=== PATIENT | male | born 1955 | race Caucasian/White ===

== ENCOUNTER 2016-08-29 16:14 | Emergency (ER) | payer OTHER, MEDICARE ==
[~2016-08-29] VITALS: Ht 180.3 cm; Wt 95.3 kg
--- NOTE | 2016-08-29 18:53 | ED SKIN/ALLERGY COMPLAINT ---
History of Present Illness General Chief Complaint: Lower Extremity Problems Stated Complaint: RIGHT UPPER THIGH PAIN, WARMNESS Source: patient Exam Limitations: no limitations Vital Signs & Intake/Output Vital Signs & Intake/Output Vital Signs Date Time Temp Pulse Resp B/P Pulse O2 O2 Flow FiO2 Ox Delivery Rate 08/29 2200 98.2 70 17 106/70 98 Room Air Room Air 08/29 2030 97.3 60 18 100/55 92 Room Air 08/29 1631 96.9 85 20 102/71 98 Room Air ED Intake and Output 08/30 0000 08/29 1200 Intake Total 240 Output Total Balance 240 Intake, Oral 240 Patient 210 lb Weight Allergies Coded Allergies: No Known Allergies (08/29/16) Reconcile Medications Ammonium Lactate 12 % CREAM..G. 1 JULIA TOP BID AFFECTED AREA(S) (Reported) Aripiprazole (Abilify) 15 MG TABLET 1 TAB PO AD MENTAL HEALTH (Reported) Aspirin (Ecotrin*) 81 MG TABLET.DR 1 TAB PO DAILY HEART/BLOOD (Reported) Atorvastatin Calcium (Unknown Strength) TABLET (Unknown Dose) PO AD CHOLESTEROL (Reported) Bupropion HCl (Wellbutrin XL) 150 MG TAB.ER.24H 1 TAB PO QAM MENTAL HEALTH ( Reported) Clonazepam (Klonopin) 0.5 MG TABLET 1 TAB PO Q12H PRN MENTAL HEALTH (Reported ) Clopidogrel Bisulfate (Plavix) 75 MG TABLET 1 TAB PO AD BLOOD THINNER ( Reported) Cyclobenzaprine HCl 10 MG TABLET 1 TAB PO TID PRN LOW BACK PAIN (Reported) Docusate Sodium (Doc-Q-Lace) 100 MG CAPSULE 1 CAP PO BID STOOL SOFTENER ( Reported) Ergocalciferol (Vitamin D2) (Vitamin D2) 50,000 UNIT CAPSULE 1 CAP PO QW SUPPLEMENT (Reported) Fluticasone/Salmeterol (Advair 500-50 Diskus) 500 MCG-50 MCG/DOSE BLST.W.DEV 1 PUF INH BID COPD (Reported) Furosemide 20 MG TABLET 1 TAB PO AD DIURETIC (Reported) Ipratropium/Albuterol Sulfate (Combivent Respimat Inhal [place]) 20 MCG-100 MCG/ ACTUATION MIST.INHAL 1 PUFF INH 4 TIMES/DAY COPD (Reported) Levothyroxine Sodium (Levoxyl) 75 MCG TABLET 1 TAB PO DAILY THYROID (Reported ) Metformin HCl (Glucophage) 1,000 MG TABLET 1 TAB PO QAM DM (Reported) Metoprolol Tartrate 25 MG TABLET 0.5 TAB PO BID HTN (Reported) Mirtazapine 30 MG TABLET 0.5 TAB PO QHS MENTAL HEALTH (Reported) Montelukast Sodium 10 MG TABLET 1 TAB PO QPM COPD (Reported) Oxycodone HCl/Acetaminophen (Percocet 5-325 MG Tablet) 5 MG-325 MG TABLET 1 TAB PO AD PAIN (Reported) Pantoprazole Sodium 40 MG TABLET.DR 1 TAB PO DAILY GERD (Reported) Quetiapine Fumarate 100 MG TABLET 1 TAB PO AD MENTAL HEALTH (Reported) Tiotropium [place] (Spiriva Respimat) 2.5 MCG/ACTUATION MIST.INHAL 1 PUFF INH DAILY COPD (Reported) Tylenol With Codeine (Tylenol With Codeine #3 Tablet) 300 MG-30 MG TABLET 1-2 TAB PO Q6 PRN pain may cause drowsiness Valproic Acid (Depakene) 250 MG/5 ML SOLUTION 15 ML PO QPM MENTAL HEALTH ( Reported) Valsartan (Diovan) 40 MG TABLET 1 TAB PO AD UNKNOWN (Reported) Venlafaxine HCl (Venlafaxine HCl ER) 150 MG CAP.ER.24H 1 CAP PO AD MENTAL HEALTH (Reported) Venlafaxine HCl 75 MG TABLET 1 TAB PO AD MENTAL HEALTH (Reported) Triage Note: PT TO ED C/O ? CELLULITIS TO RIGHT UPPER THIGH. HAS BEEN THERE 3 DAYS. PT STATES ARE IS SQUARE, PINK, AND WARM TO TOUCH. DENIES FEVERS AT HOME, AFEBRILE NOW. Triage Nurses Notes Reviewed? yes HPI: Patient is a 60-year-old male presents complaining of pain to his right thigh. Pain 3 days. Patient reports swelling to the right lateral thigh. Patient has felt warmth to the area. Patient reports that he may have struck the side of his leg against the bed but does not recall any specific or significant trauma. Patient feels weakness to the area. Pain is moderate at rest, worsens with palpation. Patient is not taking any medication for symptoms. Patient denies decreased range of motion, recent fall, chest pain, dyspnea (DAVID MCKAY) Past History Travel History Traveled to [place] past 21 day No Medical History Any Pertinent Medical History? see below for history Surgical History Surgical History: non-contributory Psychosocial History What is your primary language Ukrainian Tobacco Use: Quit >30 days ago ETOH Use: denies use Illicit Drug Use: denies illicit drug use Family History Hx Contributory? No (DAVID MCKAY) Review of Systems Review of Systems Constitutional: Denies: chills, fever. EENTM: Reports: no symptoms. Respiratory: Denies: short of breath. Cardiovascular: Denies: chest pain. GI: Denies: abdominal pain. Musculoskeletal: Reports: see HPI. Denies: back pain, neck pain. Skin: Reports: no symptoms. Neurological/Psychological: Denies: numbness, paresthesia. Hematologic/Endocrine: Denies: bleeding. (DAVID MCKAY) Physical Exam Physical Exam General Appearance: well developed/nourished, alert, awake Head: atraumatic, normal appearance Eyes: Bilateral: normal appearance. Ears, Nose, Throat: hearing grossly normal Neck: normal inspection, supple, full range of motion Respiratory: normal breath sounds, no respiratory distress, lungs clear Cardiovascular: regular rate/rhythm Peripheral Pulses: 2+ dorsalis pedis (R) Gastrointestinal: soft, non-tender Back: normal inspection, normal range of motion Extremities: 5 cm area of swelling right lateral mid thigh. Positive tenderness. Mild ecchymosis superior to this area. No erythema, warmth, induration or fluctuance. Full range of motion of all 4 extremities. Neurologic/Psych: awake, alert, oriented x 3 Skin: warm/dry (DAVID MCKAY) Progress Differential Diagnosis: abscess/cellulitis, hematoma, lipoma, malignancy, DVT Plan of Care: Orders Procedure Date/time Status PROTHROMBIN TIME 08/29 1911 Complete CBC WITHOUT DIFFERENTIAL 08/29 1911 Complete BASIC METABOLIC PANEL 08/29 1911 Complete Laboratory Tests 08/29/161932: Anion Gap 13, Estimated GFR 52 L, BUN/Creatinine Ratio 20.0, Glucose 83, Calcium 9.5, PT 12.0, INR 1.14, CBC w Diff NO MAN DIFF REQ, RBC 4.59 L, MCV 87.6, MCH 29.1, RDW 15.7 H, MPV 10.0, Gran % 64.0, Lymphocytes % 20.1 L, Monocytes % 14.0 H, Eosinophils % 1.4, Basophils % 0.5, Absolute Granulocytes 4.6, Absolute Lymphocytes 1.5, Absolute Monocytes 1.0 H, Absolute Eosinophils 0.1, Absolute Basophils 0, PUBS MCHC 33.2 08/29/2016 9:53:15 PM: Results of ultrasound discussed with patient. I stressed the importance of close outpatient follow-up for further evaluation and likely need for MRI. Patient ambulatory. Appears stable for discharge. (DAVID MCKAY) Departure Departure Disposition: HOME OR SELF CARE Condition: Stable Clinical Impression Primary Impression: Mass of right thigh Referrals: VENKAT RUBIO,EVER Patel. UNKNOWN (PCP/Family) Additional Instructions: Follow up with your primary doctor this week for further evaluation. You may also follow with Dr. Celeste(surgeon) for further evaluation. Return to the ER if pain increasing, unable to ambulate or worsening of symptoms. Departure Forms: Customer Survey General Discharge Information Prescriptions: Current Visit Scripts Tylenol With Codeine (Tylenol With Codeine #3 Tablet) 1-2 TAB PO Q6 PRN pain #15 TAB may cause drowsiness (DAVID MCKAY) PA/INGOT CAR OPERATOR Co-Sign Statement Statement: ED Attending supervision documentation- [X] I saw and evaluated the patient. I have also reviewed all the pertinent lab results and diagnostic results. I agree with the findings and the plan of care as documented in the PA's/INGOT CAR OPERATOR's documentation. [X] I have reviewed the ED Record and agree with the PA's/INGOT CAR OPERATOR's documentation. [] Additions or exceptions (if any) to the PAs/INGOT CAR OPERATOR's note and plan are summarized below: [] (OMAYRA RUBIO,YOMAIRA Prince)
[2016-08-29] MEDS ORDERED: ASPIRIN EC81 M1 PO (19:05)
[2016-08-29] MEDS ORDERED: ADVAIR 500-501 EACH INH (19:37)
[2016-08-29 19:44] LABS: ABSOLUTE BASOPHIL COUNT 0 /CUMM (0.0-0.2); ABSOLUTE EOSINOPHIL COUNT 0.1 /CUMM (0.0-0.7); ABSOLUTE GRANULOCYTE CT 4.6 /CUMM (1.4-6.5); ABSOLUTE LYMPH COUNT 1.5 /CUMM (1.2-3.4); BASOPHIL % 0.5 % (0.0-2.0); EOSINOPHIL % 1.4 % (0-5); HEMATOCRIT 40.2 % (42-52); MEAN CORPUSCULAR HGB 29.1 PG (27.0-31.0); MEAN CORPUSCULAR HGB CONC 33.2 G/DL (33.0-37.0); MEAN CORPUSCULAR VOLUME 87.6 FL (80.0-94.0); PLATELET COUNT 231 /CUMM (130-400); RBC DISTRIBUTION WIDTH 15.7 % (11.5-14.5); RED BLOOD CELL CT 4.59 /CUMM (4.70-6.10); WHITE BLOOD CELL COUNT 7.3 /CUMM (4.8-10.8)
[2016-08-29] MEDS ORDERED: MONTELUKAST SOD10 M1 PO (19:44)
[2016-08-29] MEDS ORDERED: SPIRIVA RESPIMAT4 GM INH (19:45)
[2016-08-29] MEDS ORDERED: COMBIVENT RESPIM4 GM INH (19:45)
[2016-08-29] MEDS ORDERED: AMMONIUM LACTA385 GM TOP (19:46)
[2016-08-29] MEDS ORDERED: PANTOPRAZOLE SO40 M1 PO (19:47)
[2016-08-29] MEDS ORDERED: DOC-Q-LACE100 M1 PO (19:48)
[2016-08-29] MEDS ORDERED: LEVOXYL75 MCG PO (19:50)
[2016-08-29] MEDS ORDERED: METOPROLOL TART25 M1 PO (19:50)
[2016-08-29] MEDS ORDERED: CYCLOBENZAPRINE10 M1 PO (19:51)
[2016-08-29] MEDS ORDERED: WELLBUTRIN XL150 M2 PO (19:54)
[2016-08-29] MEDS ORDERED: KLONOPIN0.5 M1 PO (19:54)
[2016-08-29] MEDS ORDERED: ABILIFY15 M1 PO (19:55)
[2016-08-29] MEDS ORDERED: ATORVASTATIN CA80 M1 PO (19:56)
[2016-08-29] MEDS ORDERED: FUROSEMIDE20 M1 PO (19:56)
[2016-08-29] MEDS ORDERED: PLAVIX75 M1 PO (19:57)
[2016-08-29] MEDS ORDERED: PERCOCET 5-3251 EACH PO (19:57)
[2016-08-29] MEDS ORDERED: QUETIAPINE FUM100 M1 PO (19:58)
[2016-08-29] MEDS ORDERED: DEPAKENE250 MG/5 M PO (19:59)
[2016-08-29] MEDS ORDERED: DIOVAN40 MG PO (20:00)
[2016-08-29] MEDS ORDERED: VENLAFAXINE HC150 MG PO (20:01)
[2016-08-29] MEDS ORDERED: VENLAFAXINE HCL75 MG PO (20:02)
[2016-08-29] MEDS ORDERED: MIRTAZAPINE30 M2 PO (20:05)
[2016-08-29] MEDS ORDERED: GLUCOPHAGE1000 M1 PO (20:06)
[2016-08-29] MEDS ORDERED: VITAMIN D250000 UNIT PO (20:09)
--- NOTE | 2016-08-29 21:32 | ULTRASOUND REPORT ---
EXAMINATION: Ultrasound of right thigh. CLINICAL INFORMATION: Right thigh pain. Focal swelling. Uncertain about history of trauma COMPARISON: None TECHNIQUE: Targeted grayscale ultrasound and color Doppler exam performed in the area of swelling at the right lateral thigh. FINDINGS: Within the muscle there is a mass. This is a hypoechoic lesion with slightly lobular contour. The lesion measures approximately 3.8 x 1.8 x 2.6 cm. With color Doppler vascular flow can be seen within this lesion. This would indicate that this is a solid lesion concerning for a neoplasm. This can be further assessed with MRI without and with contrast. IMPRESSION: Hypoechoic lesion which is intramuscular in the right lateral thigh demonstrating vascular flow on Doppler. Lesion concerning therefore for neoplasm.
[2016-08-29] MEDS ORDERED: TYLENOL WITH C1 EACH PO (21:49)
[2016-08-29 22:00] VITALS: BP 106/70
== END 2016-08-29 22:56 ==
LOC: ERH 16:14
PROVIDERS: Physician Assistant
DX: M79.89 Other specified soft tissue disorders (principal)
CPT/HCPCS: 76881

== ENCOUNTER 2016-08-31 16:54 | Emergency (ER) | payer OTHER, MEDICARE ==
[~2016-08-31] VITALS: Ht 180.3 cm; Wt 93.4 kg
[~2016-08-31 16:54] MED LIST: ABILIFY15 M1 PO; ADVAIR 500-501 EACH INH; AMMONIUM LACTA385 GM TOP; ASPIRIN EC81 M1 PO; ATORVASTATIN CA80 M1 PO; COMBIVENT RESPIM4 GM INH; CYCLOBENZAPRINE10 M1 PO; DEPAKENE250 MG/5 M PO; DIOVAN40 MG PO; DOC-Q-LACE100 M1 PO; FUROSEMIDE20 M1 PO; GLUCOPHAGE1000 M1 PO; KLONOPIN0.5 M1 PO; LEVOXYL75 MCG PO; METOPROLOL TART25 M1 PO; MIRTAZAPINE30 M2 PO; MONTELUKAST SOD10 M1 PO; PANTOPRAZOLE SO40 M1 PO; PERCOCET 5-3251 EACH PO; PLAVIX75 M1 PO; QUETIAPINE FUM100 M1 PO; SPIRIVA RESPIMAT4 GM INH; TYLENOL WITH C1 EACH PO; VENLAFAXINE HC150 MG PO; VENLAFAXINE HCL75 MG PO; VITAMIN D250000 UNIT PO; WELLBUTRIN XL150 M2 PO
--- NOTE | 2016-08-31 18:06 | ED GENERAL ADULT ---
History of Present Illness General Chief Complaint: Abdominal Pain/Flank Pain Stated Complaint: ABDOMINAL PAIN,NAUSEA Source: patient, old records Exam Limitations: no limitations Allergies Coded Allergies: No Known Allergies (08/29/16) Triage Note: C/O MID ABDOMINAL PAIN AND CRAMPING WITH VOMITING X 3 HOURS WITH SWEATING, STATES HE ATE A PIECE OF MOLDY CHEESE. Triage Nurses Notes Reviewed? yes HPI: 60-year-old man seen for evaluation of nausea and vomiting after he reportedly ingested some "old cheese" from his refrigerator when he was cleaning it out this afternoon. He reportedly found some "old Parmesan cheese" that appeared to be okay that he prepared into macaroni and cheese. He reports finding some "black dots" on part of the cheese and scraped that part off prior to preparing his meal. Approximately 1 hour after eating he reports sweats, abdominal pain, nausea with associated bilious, nonbloody vomiting with apparent food particles. He tried no home remedies and came into the [place] ED for evaluation. He otherwise reports a new productive cough of green sputum that started approximately 2 days ago. She was recently seen on 08/29/16 for a mass on his right thigh that was identified to be a potential neoplasm and was referred to Phil Celeste MD for evaluation as an outpatient. Additionally he denies any headache, fever, chills, chest pain, palpitations, shortness of breath, diarrhea, urinary urgency/frequency. (VERO RUBIO,SHILA) Vital Signs & Intake/Output Vital Signs & Intake/Output Vital Signs Date Time Temp Pulse Resp B/P Pulse O2 O2 Flow FiO2 Ox Delivery Rate 08/31 2045 96.2 61 18 120/67 97 08/31 1723 98.4 82 18 184/93 100 ED Intake and Output 09/01 0000 08/31 1200 Intake Total 2000 Output Total Balance 2000 Intake, IV 2000 Patient 93.44 kg Weight Reconcile Medications Ammonium Lactate 12 % CREAM..G. 1 JULIA TOP BID AFFECTED AREA(S) (Reported) Aripiprazole (Abilify) 15 MG TABLET 1 TAB PO AD MENTAL HEALTH (Reported) Aspirin (Ecotrin*) 81 MG TABLET.DR 1 TAB PO DAILY HEART/BLOOD (Reported) Atorvastatin Calcium (Unknown Strength) TABLET (Unknown Dose) PO AD CHOLESTEROL (Reported) Bupropion HCl (Wellbutrin XL) 150 MG TAB.ER.24H 1 TAB PO QAM MENTAL HEALTH ( Reported) Clonazepam (Klonopin) 0.5 MG TABLET 1 TAB PO Q12H PRN MENTAL HEALTH (Reported ) Clopidogrel Bisulfate (Plavix) 75 MG TABLET 1 TAB PO AD BLOOD THINNER ( Reported) Cyclobenzaprine HCl 10 MG TABLET 1 TAB PO TID PRN LOW BACK PAIN (Reported) Docusate Sodium (Doc-Q-Lace) 100 MG CAPSULE 1 CAP PO BID STOOL SOFTENER ( Reported) Ergocalciferol (Vitamin D2) (Vitamin D2) 50,000 UNIT CAPSULE 1 CAP PO QW SUPPLEMENT (Reported) Fluticasone/Salmeterol (Advair 500-50 Diskus) 500 MCG-50 MCG/DOSE BLST.W.DEV 1 PUF INH BID COPD (Reported) Furosemide 20 MG TABLET 1 TAB PO AD DIURETIC (Reported) Ipratropium/Albuterol Sulfate (Combivent Respimat Inhal [place]) 20 MCG-100 MCG/ ACTUATION MIST.INHAL 1 PUFF INH 4 TIMES/DAY COPD (Reported) Levothyroxine Sodium (Levoxyl) 75 MCG TABLET 1 TAB PO DAILY THYROID (Reported ) Metformin HCl (Glucophage) 1,000 MG TABLET 1 TAB PO QAM DM (Reported) Metoprolol Tartrate 25 MG TABLET 0.5 TAB PO BID HTN (Reported) Mirtazapine 30 MG TABLET 0.5 TAB PO QHS MENTAL HEALTH (Reported) Montelukast Sodium 10 MG TABLET 1 TAB PO QPM COPD (Reported) Ondansetron (Zofran Odt) 4 MG TAB.RAPDIS 1 TAB PO Q6 PRN NAUSEA Oxycodone HCl/Acetaminophen (Percocet 5-325 MG Tablet) 5 MG-325 MG TABLET 1 TAB PO AD PAIN (Reported) Pantoprazole Sodium 40 MG TABLET.DR 1 TAB PO DAILY GERD (Reported) Quetiapine Fumarate 100 MG TABLET 1 TAB PO AD MENTAL HEALTH (Reported) Tiotropium [place] (Spiriva Respimat) 2.5 MCG/ACTUATION MIST.INHAL 1 PUFF INH DAILY COPD (Reported) Tylenol With Codeine (Tylenol With Codeine #3 Tablet) 300 MG-30 MG TABLET 1-2 TAB PO Q6 PRN pain may cause drowsiness Valproic Acid (Depakene) 250 MG/5 ML SOLUTION 15 ML PO QPM MENTAL HEALTH ( Reported) Valsartan (Diovan) 40 MG TABLET 1 TAB PO AD UNKNOWN (Reported) Venlafaxine HCl (Venlafaxine HCl ER) 150 MG CAP.ER.24H 1 CAP PO AD MENTAL HEALTH (Reported) Venlafaxine HCl 75 MG TABLET 1 TAB PO AD MENTAL HEALTH (Reported) (SHAD RUBIO,JESSIE) Past History Travel History Traveled to [place] past 21 day No Medical History Any Pertinent Medical History? see below for history Musculoskeletal: LUMP ON LEG Surgical History Surgical History: non-contributory Psychosocial History What is your primary language Faroese Tobacco Use: Never used ETOH Use: occasional use Family History Hx Contributory? No (SHILA PHAM MD) Review of Systems Review of Systems Constitutional: Reports: see HPI. (SHILA PHAM MD) Physical Exam Physical Exam General Appearance: well developed/nourished, anxious, mild distress, obese Comments: General -well-developed, well-nourished obese male in mild distress HEENT - NCAT, PERRL, EOMI, anicteric sclera Cardio - S1, S2 w/o murmurs/gallops/rubs Resp - CTA bilaterally w/o wheezing/rhochi/crackles GI - soft, diffuse mild tenderness, nondistended, bowel sounds present Neuro - Awake and alert, CN II - XII grossly intact Extremities - no edema, pulses intact Core Measures ACS in differential dx? No CVA/TIA Diagnosis: No Severe Sepsis Present: No Septic Shock Present: No (SHILA PHAM MD) Progress Differential Diagnoses I considered the following diagnoses in my evaluation of the patient: Food poisoning, gastroenteritis Initial ED EKG: none Comments: Given patient's history of present illness and his ingestion of a food that was obviously old and moldy it is more likely than not patient is experiencing an acute gastroenteritis due to toxic food ingestion. Complete blood count demonstrated a mild leukocytosis to 12.3 and was otherwise unremarkable. Complaints of metabolic panel demonstrated an anion gap of 17 with an elevated BUN/creatinine of 30/1.3. This is most likely secondary to volume depletion and dehydration secondary to recurrent emesis manifesting in a prerenal azotemia. Patient is maintained on intravenous normal saline for fluid repletion and antiemetics and given pain medications for his abdominal discomfort. (SHILA PHAM MD) Plan of Care: Orders Procedure Date/time Status LIPASE 08/31 1806 Complete COMPREHENSIVE METABOLIC PANEL 08/31 1806 Complete CBC WITHOUT DIFFERENTIAL 08/31 1806 Complete Laboratory Tests 08/31/16 1824: Anion Gap 17 H, Estimated GFR 56 L, BUN/Creatinine Ratio 23.1, Glucose 123 H, Calcium 9.9, Total Bilirubin 1.0, AST 24, ALT 31, Alkaline Phosphatase 54, Total Protein 7.2, Albumin 4.3, Globulin 2.9, Albumin/Globulin Ratio 1.5, Lipase 86, CBC w Diff NO MAN DIFF REQ, RBC 4.83, MCV 87.7, MCH 28.9, RDW 15.2 H, MPV 10.1, Gran % 87.6 H, Lymphocytes % 7.7 L, Monocytes % 4.0, Eosinophils % 0.6, Basophils % 0.1, Absolute Granulocytes 10.8 H, Absolute Lymphocytes 1.0 L, Absolute Monocytes 0.5, Absolute Eosinophils 0.1, Absolute Basophils 0, PUBS MCHC 32.9 L 8 pm po challenge initiated (SHAD RUBIO,JESSIE) Departure Departure Condition: Stable Clinical Impression Primary Impression: Food poisoning Qualifiers: Encounter type: initial encounter Injury intent: accidental or unintentional Qualified Code: T62.91XA - Toxic effect of unspecified noxious substance eaten as food, accidental (unintentional), initial encounter Secondary Impressions: Gastroenteritis due to food toxin Referrals: UNKNOWN (PCP/Family) Departure Forms: Customer Survey General Discharge Information (VERO RUBIO,SHILA) Departure Time of Disposition: 2034 Disposition: HOME OR SELF CARE Additional Instructions: Zofran as needed for nausea. Take your pain medications as previously prescribed and follow up with your doctor in the office regarding the findings from the other day. Return as needed. Prescriptions: Current Visit Scripts Ondansetron (Zofran Odt) 1 TAB PO Q6 PRN NAUSEA #20 TAB PA/SAW OFFBEARER Co-Sign Statement Statement: ED Attending supervision documentation- [] I saw and evaluated the patient. I have also reviewed all the pertinent lab results and diagnostic results. I agree with the findings and the plan of care as documented in the PA's/SAW OFFBEARER's documentation. [X] I have reviewed the ED Record and agree with the PA's/SAW OFFBEARER's documentation. [] Additions or exceptions (if any) to the PAs/SAW OFFBEARER's note and plan are summarized below: [] Resident Co-Sign Statement Statement: ED Attending supervision documentation- [X] I saw and evaluated the patient. I have also reviewed all the pertinent lab results and diagnostic results. I agree with the findings and the plan of care as documented in the Resident's documentation. [X] I have reviewed the ED Record and agree with the Resident's documentation. [] Additions or exceptions (if any) to the Resident's note and plan are summarized below: [] (SHAD RUBIO,JESSIE) Critical Care Note Critical Care Note Critical Care Time: non-applicable (VERO RUBIO,SHILA)
[2016-08-31 18:37] LABS: ABSOLUTE BASOPHIL COUNT 0 /CUMM (0.0-0.2); ABSOLUTE EOSINOPHIL COUNT 0.1 /CUMM (0.0-0.7); ABSOLUTE GRANULOCYTE CT 10.8 /CUMM (1.4-6.5); ABSOLUTE MONOCYTE COUNT 0.5 /CUMM (0.10-0.60); BASOPHIL % 0.1 % (0.0-2.0); EOSINOPHIL % 0.6 % (0-5); HEMATOCRIT 42.4 % (42-52); MEAN CORPUSCULAR HGB 28.9 PG (27.0-31.0); MEAN CORPUSCULAR HGB CONC 32.9 G/DL (33.0-37.0); MEAN CORPUSCULAR VOLUME 87.7 FL (80.0-94.0); MEAN PLATELET VOLUME 10.1 FL (7.4-10.4); PLATELET COUNT 215 /CUMM (130-400); RBC DISTRIBUTION WIDTH 15.2 % (11.5-14.5); RED BLOOD CELL CT 4.83 /CUMM (4.70-6.10)
[2016-08-31 18:38] LABS: GRANULOCYTE % 87.6 % (42.2-75.2); WHITE BLOOD CELL COUNT 12.3 /CUMM (4.8-10.8)
[2016-08-31] MEDS ORDERED: ZOFRAN ODT4 M1 PO (20:36)
[2016-08-31 20:46] VITALS: BP 120/67
== END 2016-08-31 20:59 ==
LOC: ERH 16:54
PROVIDERS: Internal Medicine Interventional Cardiology
DX: T62.91XA Toxic effect of unspecified noxious substance eaten as food, accidental (unintentional), initial encounter (principal)
CPT/HCPCS: 96374; 96375; J2405

== ENCOUNTER 2016-11-19 18:57 | Emergency (ER) | payer OTHER, MEDICARE ==
[~2016-11-19] VITALS: Ht 175.3 cm; Wt 97.1 kg
[~2016-11-19 18:57] MED LIST changes: +ZOFRAN ODT4 M1 PO
--- NOTE | 2016-11-19 20:19 | ED NOSE COMPLAINT ---
History of Present Illness General Chief Complaint: Epistaxis/Nasal Foreign Body Stated Complaint: EPISTAXIS Source: patient Exam Limitations: no limitations Vital Signs & Intake/Output Vital Signs & Intake/Output Vital Signs Date Time Temp Pulse Resp B/P B/P Pulse O2 O2 Flow FiO2 Mean Ox Delivery Rate 11/19 2025 97.1 67 20 132/77 99 Room Air 11/19 1909 97.8 73 16 129/85 100 Room Air ED Intake and Output 11/20 0000 11/19 1200 Intake Total 60 Output Total Balance 60 Intake, Oral 60 Patient 214 lb Weight Weight Reported by Patient Measurement Method Allergies Coded Allergies: No Known Allergies (08/29/16) Reconcile Medications Ammonium Lactate 12 % CREAM..G. 1 JULIA TOP BID AFFECTED AREA(S) (Reported) Aripiprazole (Abilify) 15 MG TABLET 1 TAB PO AD MENTAL HEALTH (Reported) Aspirin (Ecotrin*) 81 MG TABLET.DR 1 TAB PO DAILY HEART/BLOOD (Reported) Atorvastatin Calcium (Unknown Strength) TABLET (Unknown Dose) PO AD CHOLESTEROL (Reported) Bupropion HCl (Wellbutrin XL) 150 MG TAB.ER.24H 1 TAB PO QAM MENTAL HEALTH ( Reported) Clonazepam (Klonopin) 0.5 MG TABLET 1 TAB PO Q12H PRN MENTAL HEALTH (Reported ) Clopidogrel Bisulfate (Plavix) 75 MG TABLET 1 TAB PO AD BLOOD THINNER ( Reported) Cyclobenzaprine HCl 10 MG TABLET 1 TAB PO TID PRN LOW BACK PAIN (Reported) Docusate Sodium (Doc-Q-Lace) 100 MG CAPSULE 1 CAP PO BID STOOL SOFTENER ( Reported) Ergocalciferol (Vitamin D2) (Vitamin D2) 50,000 UNIT CAPSULE 1 CAP PO QW SUPPLEMENT (Reported) Fluticasone/Salmeterol (Advair 500-50 Diskus) 500 MCG-50 MCG/DOSE BLST.W.DEV 1 PUF INH BID COPD (Reported) Furosemide 20 MG TABLET 1 TAB PO AD DIURETIC (Reported) Ipratropium/Albuterol Sulfate (Combivent Respimat Inhal [place]) 20 MCG-100 MCG/ ACTUATION MIST.INHAL 1 PUFF INH 4 TIMES/DAY COPD (Reported) Levothyroxine Sodium (Levoxyl) 75 MCG TABLET 1 TAB PO DAILY THYROID (Reported ) Metformin HCl (Glucophage) 1,000 MG TABLET 1 TAB PO QAM DM (Reported) Metoprolol Tartrate 25 MG TABLET 0.5 TAB PO BID HTN (Reported) Mirtazapine 30 MG TABLET 0.5 TAB PO QHS MENTAL HEALTH (Reported) Montelukast Sodium 10 MG TABLET 1 TAB PO QPM COPD (Reported) Oxycodone HCl/Acetaminophen (Percocet 5-325 MG Tablet) 5 MG-325 MG TABLET 1 TAB PO AD PAIN (Reported) Pantoprazole Sodium 40 MG TABLET.DR 1 TAB PO DAILY GERD (Reported) Quetiapine Fumarate 100 MG TABLET 1 TAB PO AD MENTAL HEALTH (Reported) Tiotropium [place] (Spiriva Respimat) 2.5 MCG/ACTUATION MIST.INHAL 1 PUFF INH DAILY COPD (Reported) Valproic Acid (Depakene) 250 MG/5 ML SOLUTION 15 ML PO QPM MENTAL HEALTH ( Reported) Valsartan (Diovan) 40 MG TABLET 1 TAB PO AD UNKNOWN (Reported) Venlafaxine HCl (Venlafaxine HCl ER) 150 MG CAP.ER.24H 1 CAP PO AD MENTAL HEALTH (Reported) Venlafaxine HCl 75 MG TABLET 1 TAB PO AD MENTAL HEALTH (Reported) Triage Note: PT TO ED FOR BLOODY NOSE, SEEN AT URGENT CARE AND CURRENTLY HAS RHINO ROCKET IN PLACE. PT CONCERNED DUE TO INTERMITTENT DRIPPING OF BLOOD FROM L NARES. Triage Nurses Notes Reviewed? yes HPI: This patient is a 61-year-old male who presented to the emergency department today for evaluation of epistaxis. The patient was seen at an urgent care center approximately 3 hours ago and a Rhino Rocket was placed into his left nare. He reported that his nose still seems to be, "dripping," so he called his financial recruiter who told him to come to the emergency department. The patient denied any visual changes or headaches. He denied any chest pain or difficulty breathing. (PARISA SPENCER PA-C) Past History Travel History Traveled to [place] past 21 day No Medical History Any Pertinent Medical History? see below for history Musculoskeletal: LUMP ON LEG Surgical History Surgical History: non-contributory Psychosocial History What is your primary language Irish Family History Hx Contributory? No (PARISA SPENCER PA-C) Review of Systems Review of Systems Constitutional: Reports: no symptoms. EENTM: Reports: see HPI. Respiratory: Reports: no symptoms. Cardiovascular: Reports: no symptoms. GI: Reports: no symptoms. Genitourinary: Reports: no symptoms. Musculoskeletal: Reports: no symptoms. Skin: Reports: no symptoms. Neurological/Psychological: Reports: no symptoms. All Other Systems: Reviewed and Negative (PARISA SPENCER PA-C) Physical Exam Physical Exam Nose: Rhino Rocket in place to the left nare. Dried blood around the left nare. Atraumatic. Comments: Well-developed well-nourished person in no acute distress HEENT: Head normocephalic/atraumatic, moist mucous membranes Neck: Supple, no lymphadenopathy Back: Normal gait Respiratory: No respiratory distress. Speaking in full sentences Extremities: No edema, full range of motion Neuro: Alert and oriented x3 Psych: Mood affect normal, normal memory normal judgment. Skin: Warm and dry, no rash on exposed skin (PARISA SPENCER PA-C) Progress Differential Diagnoses I considered the following diagnoses in my evaluation of the patient: [Epistaxis , hypertension, hypertensive urgency, hypertensive crisis] Plan of Care: This patient is a 61-year-old male who presented to the emergency department today for evaluation of epistaxis. This patient currently has a Rhino Rocket that was placed onto the urgent care center. Mild oozing of blood from the left nare. He is normotensive with no associated symptoms such as headache, visual changes, or chest pain. Discussed with this patient that is normal for a little bit of blood to drip after a Rhino Rocket is placed. He was instructed to follow up with his primary care physician or to return for any worsening symptoms. Initial ED EKG: none (PARISA SPENCER PA-C) Departure Departure Disposition: HOME OR SELF CARE Condition: Stable Clinical Impression Primary Impression: Epistaxis Referrals: UNKNOWN (PCP/Family) Additional Instructions: Please follow-up with your primary care physician. Have this packing removed in approximately 3 days. Return in the meantime to the emergency department for any worsening symptoms or concerns. Departure Forms: Customer Survey General Discharge Information (PARISA SPENCER PA-C) PA/DOG CATCHER Co-Sign Statement Statement: ED Attending supervision documentation- [] I saw and evaluated the patient. I have also reviewed all the pertinent lab results and diagnostic results. I agree with the findings and the plan of care as documented in the PA's/DOG CATCHER's documentation. [X] I have reviewed the ED Record and agree with the PA's/DOG CATCHER's documentation. [] Additions or exceptions (if any) to the PAs/DOG CATCHER's note and plan are summarized below: [] (SHAD RUBIO,JESSIE)
[2016-11-19 20:26] VITALS: BP 132/77
== END 2016-11-19 20:26 ==
LOC: ERH 18:57
DX: R04.0 Epistaxis (principal)